=== PATIENT | male | born 1980 | race Caucasian/White ===

== ENCOUNTER 2021-09-29 21:26 | Emergency (ER) | payer SELFPAY ==
[2021-09-29] MEDS ORDERED: AUGMENTIN 875-1 EACH PO (21:54)
== END 2021-09-29 21:57 | disposition home or self-care (01) ==
LOC: ER1 21:26
DX: S60.512A Abrasion of left hand, initial encounter (principal); W55.03XA Scratched by cat, initial encounter
CPT/HCPCS: 99282